=== PATIENT | female | born 1995 | race Caucasian/White ===

== ENCOUNTER → 2019-01-20 | Outpatient (CLI) | payer BC ==
[2019-01-21 07:19] LABS: FOLLICLE STIMULATING HORMONE 3.3 mIU/mL (.)
== END | disposition home or self-care (01) ==
LOC: RAD 10:09
PROVIDERS: ATTEND Obstetrics & Gynecology
DX: N91.1 Secondary amenorrhea (principal); Z68.42 Body mass index [BMI] 45.0-49.9, adult
CPT/HCPCS: 36415; 80061; 82951; 83001; 83036; 83498; 84146; 84403; 84439; 84443

== ENCOUNTER → 2019-01-26 | Outpatient (CLI) | payer BC ==
--- NOTE | 2019-01-27 11:37 | DIREP ---
PROCEDURE:US PELVIC FOLLOWED BY TRANSVAGINAL COMPARISON:None. INDICATIONS:N91.1 SECONDARY AMENORRHEA TECHNIQUE:Pelvic ultrasound using transabdominal technique. Endovaginal images were also obtained for better assessment of the uterus and adnexa. FINDINGS: LMP: "2 years ago" UTERUS:Size is 7.5 x 3.3 x 2.4 cm. The myometrium is inhomogeneous. ENDOMETRIUM:Thickness is 1.1 cm. RIGHT OVARY:Multiple immature follicles. 4.5 x 2.7 x 2.6 cm. 16.4 cc LEFT OVARY:Normal appearance. 3.5 x 3.1 x 2.5 cm. 14 cc CUL-DE-SAC:Normal. OTHER:Negative. CONCLUSION: 1. Ovaries: Polycystic. Dictated by: LATASHA Physician on 01/27/2019 at 08:36 AM ac
== END | disposition home or self-care (01) ==
LOC: RAD 15:23
PROVIDERS: ATTEND Obstetrics & Gynecology
DX: E28.2 Polycystic ovarian syndrome (principal)
CPT/HCPCS: 76830; 76856